=== PATIENT | male | born 1980 | race Two or more races ===

== ENCOUNTER 2017-01-05 19:40 | Emergency (ER) | payer SELFPAY ==
[2017-01-05 19:43] VITALS: BP 151/84
[2017-01-05] MEDS ORDERED: TRIA15OI TP (19:58)
[2017-01-05] MEDS ORDERED: PRED-220 PO (19:58)
[2017-01-05] MEDS ORDERED: DIPH25CA58 PO (19:58)
--- NOTE | 2017-01-05 19:58 | PHYS DOC ---
Past Medical History Past Medical History: No Pertinent History Past Surgical History: No Surgical History Alcohol Use: Rarely Drug Use: None Adult General Chief Complaint Chief Complaint: SKIN PROBLEM HPI HPI Patient is a 36 year old male who presents stating he has poison shikha rash after walking outside 2 days ago. Review of Systems Review of Systems Constitutional: Denies fever or chills [] Eyes: Denies change in visual acuity, redness, or eye pain [] Musculoskeletal: Denies back pain or joint pain [] Integument: rash Neurologic: Denies headache, focal weakness or sensory changes [] Endocrine: Denies polyuria or polydipsia [] Allergies Allergies Allergies Coded Allergies Type Severity Reaction Last Updated Verified No Known Drug Allergies 01/05/17 No Physical Exam Physical Exam Constitutional: Well developed, well nourished, no acute distress, non-toxic appearance. [] HENT: Normocephalic, atraumatic, bilateral external ears normal, oropharynx moist, no oral exudates, nose normal. [] Skin: Mild amount of erythematous papular rash on bilateral upper extremities and chest. Back: No tenderness, no CVA tenderness. [] Extremities: No tenderness, no cyanosis, no clubbing, ROM intact, no edema. [] Neurologic: Alert and oriented X 3, normal motor function, normal sensory function, no focal deficits noted. [] Psychologic: Affect normal, judgement normal, mood normal. [] Current Patient Data Vital Signs Vital Signs Date Time Temp Pulse Resp B/P Pulse Ox O2 Delivery O2 Flow Rate FiO2 01/05/17 19:43 99.3 80 20 98 Room Air 99.3 EKG EKG [] Radiology/Procedures Radiology/Procedures [] Course & Med Decision Making Course & Med Decision Making Pertinent Labs and Imaging studies reviewed. (See chart for details) Patient has contact dermatitis rash due to poison shikha. Discharged with tapering dose of prednisone, triamcinolone cream and Benadryl. Follow-up with PCP in 2 weeks as needed. Dragon Disclaimer Dragon Disclaimer This electronic medical record was generated, in whole or in part, using a voice recognition dictation system. Departure Departure Impression: Primary Impression: Contact dermatitis due to poison shikha Disposition: 01 HOME, SELF-CARE Condition: STABLE Referrals: BRAD SONI MD Follow-up with your doctor the provided doctor in 2 weeks Patient Instructions: Contact Dermatitis, [id number] Additional Instructions: You were seen for poison shikha rash. Use the prescribed medicines as ordered. Take Benadryl every 4 hours. Follow-up with your doctor in two weeks Scripts Diphenhydramine Hcl (Benadryl)25 Mg Capsule1 Cap PO Q4HRS W/A PRN RASH #30 CAP Ref 1 Prov:TONY HARDIN APRN 01/05/17 Prednisone 10 Mg [id number] Mg PO DAILY #30 TAB Please dispense as follows, provide patient adequate amount of medication 50mg X 2 days 45mg X 2 days 40mg X 2 days 35mg X 2 days 30mg X 2 days 20mg X 2 days 10mg X 2 days Prov:TONY HARDIN APRN 01/05/17 Triamcinolone Acetonide (Triamcinolone Acetonide 0.1% Oint)15 Gm Oint...g.1 Latesha TP TID WOUND CARE #1 TUBE MIX WITH EUCERIN DIRECTED BY PHYSICIAN Prov:TONY HARDIN APRN 01/05/17 TONY HARDIN APRN Jan 05, 2017 19:58
== END 2017-01-05 20:10 | disposition home or self-care (01) ==
LOC: ER 19:40
DX: L23.7 Allergic contact dermatitis due to plants, except food (principal)
CPT/HCPCS: 99283